=== PATIENT | male | born 1950 | race Caucasian/White ===

== ENCOUNTER 2022-01-15 18:27 | Emergency (ER) | payer MEDICARE, OTHER ==
[~2022-01-15] VITALS: Ht 180.3 cm; Wt 79.4 kg
[2022-01-15] MEDS ORDERED: DOXY-326 PO (18:36)
[2022-01-15] MEDS ORDERED: CEFTRIAXONE 1 G VIAL ONE (18:40)
[2022-01-15] MEDS ORDERED: CEFTRIAXONE 1 G VIAL IM ONE (18:45)
--- NOTE | 2022-01-15 18:54 | NUR ---
PT SEEN AND EVALUATED BY DR ZAMORA. MEDICATED PER MD ORDER.
[2022-01-15 18:56] VITALS: BP 160/70
--- NOTE | 2022-01-15 18:56 | NUR ---
DISCHARGE INSTRUCTIONS GIVEN BY
== END 2022-01-15 18:57 | disposition home or self-care (01) ==
LOC: ER 18:27
DX: N34.2 Other urethritis (principal)
CPT/HCPCS: 99283; 96372; J0696; A4663